=== PATIENT | female | born 1980 | race Caucasian/White ===

== ENCOUNTER 2023-04-23 15:50 | Outpatient (CLI) | payer MEDICAID, SELFPAY | END 2023-04-23 15:51 | disposition home or self-care (01) | LOC: FRMREF 15:51 | PROVIDERS: PCP Physician Assistant Medical; Visit Provider Family Medicine | DX: K62.5 Hemorrhage of anus and rectum (principal) | CPT/HCPCS: 80053 ==

== ENCOUNTER 2023-09-21 12:16 | Outpatient (CLI) | payer MEDICAID, SELFPAY ==
[2023-09-21 23:28] LABS: Chlamydia DNA Amplified* NOT DETECTED (No Detected); GC DNA Amplified* NOT DETECTED (No Detected)
== END 2023-09-21 12:17 | disposition home or self-care (01) ==
LOC: LKVREF 12:16
PROVIDERS: PCP Physician Assistant Medical; Visit Provider Physician Assistant
DX: Z11.3 Encounter for screening for infections with a predominantly sexual mode of transmission (principal)
CPT/HCPCS: 87491; 87591

== ENCOUNTER 2023-12-25 15:15 | Outpatient (CLI) | payer MEDICAID, SELFPAY | END 2023-12-25 15:16 | disposition home or self-care (01) | LOC: NFLDREF 12-28 12:27 | PROVIDERS: PCP Physician Assistant Medical; Referring Provider Physician Assistant Medical; Visit Provider Physician Assistant Medical | DX: G25.0 Essential tremor (principal); I10 Essential (primary) hypertension; E78.5 Hyperlipidemia, unspecified | CPT/HCPCS: 80053; 80061; 84443 ==

== ENCOUNTER 2024-04-22 12:38 | Outpatient (CLI) | payer MEDICAID, SELFPAY ==
--- NOTE | 2024-04-22 13:45 | CRLHL7_ITS ---
For Patients: As a result of the Century Cures Act, medical imaging exams and procedure reports are released immediately into your electronic medical record. You may view this report before your referring provider. If you have questions, please contact your health care provider. Indication: Headaches. Technique: Noncontrast sagittal T1, axial FLAIR, T2, diffusion weighted sequences are provided. No comparisons. Findings: The ventricles, sulci and gyri are normal size, shape and contour for age. The midline structures are centrally located with no evidence of shift. There are no suspicious intra or extra-axial fluid collections. No region of restricted diffusion. Expected flow voids in the cavernous carotids and basilar artery. Mild scattered foci of increased T2 signal within the supratentorial white matter that are non-specific. Impression: 1. No radiographic evidence of acute intracranial abnormalities. 2. Mild scattered supratentorial white matter change that is non-specific. Differential considerations include changes related to diabetes, hypertension, collagen vascular disease or migranous headaches. Dictated by Franki Stubbs MD @ 04/22/2024 3:04:31 PM (Electronically Signed)
== END 2024-04-22 12:39 | disposition home or self-care (01) ==
LOC: MRI 12:42
PROVIDERS: PCP Physician Assistant Medical; Visit Provider Physician Assistant Medical
DX: R51.9 Headache, unspecified (principal); G93.5 Compression of brain
CPT/HCPCS: 70551

== ENCOUNTER 2024-07-01 13:19 | Outpatient (CLI) | payer MEDICAID, SELFPAY | END 2024-07-01 13:20 | disposition home or self-care (01) | LOC: MAMMO 13:20 | PROVIDERS: PCP Physician Assistant Medical; Visit Provider Physician Assistant Medical | DX: Z12.31 Encounter for screening mammogram for malignant neoplasm of breast (principal); R92.333 Mammographic heterogeneous density, bilateral breasts | CPT/HCPCS: 77063; 77067 ==